=== PATIENT | male | born 2000 | race Caucasian/White ===

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

== ENCOUNTER 2021-03-01 13:30 | Emergency (ER) | payer OTHER ==
[~2021-03-01] VITALS: Ht 177.8 cm; Wt 104.3 kg
[~2021-03-01 13:30] MED LIST changes: +TYLENOL WITH CO1 TA1 PO
[2021-03-01] MEDS ORDERED: IBUPROFEN 800800 M1 PO (15:41)
[2021-03-01 15:50] VITALS: BP 121/89
== END 2021-03-01 15:51 | disposition home or self-care (01) ==
LOC: M.ERS 13:30
DX: S63.501A Unspecified sprain of right wrist, initial encounter (principal); J45.909 Unspecified asthma, uncomplicated; W10.2XXA Fall (on)(from) incline, initial encounter; Y93.51 Activity, roller skating (inline) and skateboarding; Y92.89 Other specified places as the place of occurrence of the external cause; Y99.8 Other external cause status